=== PATIENT | female | born 1945 | race Caucasian/White ===

== ENCOUNTER → 2016-09-01 | Outpatient (CLI) | payer OTHER | LOC: BHCLAF 13:30 | PROVIDERS: ATTEND Internal Medicine Cardiovascular Disease | DX: R07.9 Chest pain, unspecified (principal); R94.31 Abnormal electrocardiogram [ECG] [EKG]; I10 Essential (primary) hypertension | CPT/HCPCS: 93005-PO ==

== ENCOUNTER → 2016-09-21 | Outpatient (CLI) | payer OTHER | LOC: BHLMT 09:30 | PROVIDERS: ATTEND Internal Medicine Cardiovascular Disease | DX: R07.9 Chest pain, unspecified (principal); R94.31 Abnormal electrocardiogram [ECG] [EKG] | CPT/HCPCS: 78452; 93017; A9500; J2785 ==

== ENCOUNTER 2016-10-12 07:53 | Day surgery (SDC) | payer OTHER ==
[2016-10-12] MEDS ORDERED: NS 1,000 ML IV ONE (07:56)
[2016-10-12] MEDS ORDERED: DIAZEPAM 5 MG TAB PO ONE (07:56)
[2016-10-12] MEDS ORDERED: ASPIRIN EC 325 MG TAB PO ONE ×2 (07:56→08:50)
[2016-10-12] MEDS ORDERED: FAMOTIDINE 20 MG TAB PO ONE (07:56)
[2016-10-12] MEDS ORDERED: diphenhydrAMINE 25 MG CAP PO ONE ×2 (07:56→08:50)
--- NOTE | 2016-10-12 08:27 | CPEKG ---
Heart Rate: 69 RR Interval: 870 P-R Interval: 184 QRSD Interval: 74 QT Interval: 436 QTC Interval: 467 P Caspar: 14 QRS Caspar: 6 T Wave Caspar: 36 EKG Severity - NORMAL ECG - EKG Impression: SINUS RHYTHM Electronically Signed By: Andrea Castillo 13-Oct-2016 18:31:38
[2016-10-12 08:29] LABS: % IMMATURE GRANULYOCYTES 0.3 % (0.0-1.1); ABSOLUTE IMMATURE GRANULOCYTES 0.01 10^3/uL (0.00-0.10); ADD DIFF? NO; ADD MORPH? NO; ADD SCAN? NO; ATYPICAL LYMPHOCYTE FLAG 20 (0-99); FRAGMENT RBC FLAG 0 (0-99); HEMATOCRIT 42.1 % (38.0-47.0); HEMOGLOBIN 14.6 g/dL (12.6-16.3); LEFT SHIFT FLG 0 (0-99); LIPEMIA HEMOLYSIS FLAG 90 (0-99); MEAN CELL HEMOGLOBIN 31.3 pg (27.9-34.1); MEAN CELL HEMOGLOBIN CONCENTR. 34.7 g/dL (32.4-36.7); MEAN CELL VOLUME 90.1 fL (81.5-99.8); MEAN PLATELET VOLUME 9.6 fL (8.7-11.7); PLATELET CLUMPS FLAG 0 (0-99); PLATELET COUNT 322 10^3/uL (150-400); RED BLOOD CELL COUNT 4.67 10^6/uL (4.18-5.33); RED CELL DISTRIBUTION WIDTH 12.5 % (11.5-15.2)
[2016-10-12 08:37] LABS: PROTIME(PATIENT) 13.1 SEC (12.0-15.0)
[2016-10-12 08:48] LABS: ANION GAP 13 mEq/L (8-16); CALCIUM 9.7 mg/dL (8.5-10.4); CARBON DIOXIDE 22 mEq/l (22-31); CHLORIDE 106 mEq/L (97-110); CHOLESTEROL 215 mg/dL (140-220); CHOLESTEROL/HDL RATIO 3.71 RATIO (1.00-4.44); CREATININE 0.8 mg/dL (0.6-1.0); GLOMERULAR FILTRATION RATE > 60; GLUCOSE 202 mg/dL (70-100); HIGH DENSITY LIPOPROTEIN 58 mg/dL (40-85); LDL/HDL RATIO 2.29 RATIO (1.00-3.22); LOW DENSITY LIPOPROTEIN 133 mg/dL (80-100); MAGNESIUM 2.1 mg/dL (1.6-2.3); NON-HIGH DENSITY LIPOPROTEIN 157 mg/dL (90-129); POTASSIUM 4.2 mEq/L (3.5-5.2); SODIUM 141 mEq/L (134-144); TRIGLYCERIDE 123 mg/dL (35-135); VERY LOW DENSITY LIPOPROTEINS 24 mg/dL (8-25)
[2016-10-12] MEDS ORDERED: DIAZEPAM 5 MG TAB ONE (08:50)
[2016-10-12] MEDS ORDERED: FAMOTIDINE 20 MG TAB ONE (08:50)
[2016-10-12] MEDS ORDERED: LIDOCAINE 1% 30 ML SDV ONE (08:52)
[2016-10-12] MEDS ORDERED: HEPARIN 10,000 UNIT/10 ML MDV ONE (08:52)
[2016-10-12] MEDS ORDERED: VERAPAMIL 5 MG/2 ML VIAL ONE (08:52)
[2016-10-12] MEDS ORDERED: fentaNYL 100 MCG/2 ML INJ ONE (08:52)
[2016-10-12] MEDS ORDERED: IOPAMIDOL (ISOVUE 370) 100 ML BTL IV ONE (08:52)
[2016-10-12] MEDS ORDERED: MIDAZOLAM 2 MG/2 ML VIAL ONE (08:52)
--- NOTE | 2016-10-12 10:23 | CPIP ---
[f rep st] INVASIVE CARDIAC PROCEDURE DATE OF PROCEDURE: 10/12/2016 PROCEDURE: 1. Coronary angiography. 2. Left ventriculography. INDICATION: 1. Chest pain syndrome. 2. Abnormal nuclear stress test with apical ischemia consistent with a low risk stress test. ACCESS: The patient was prepped and draped in sterile fashion. 1% lidocaine was used to anesthetiz e the left radial region. A 5-Turkmen introducer sheath was placed selectively into the left radial artery via modified Seldinger technique. CORONARY ANGIOGRAPHY: A 5-Turkmen JL4 was advanced to the left main coronary artery and images obtai parris. The left main coronary artery bifurcated into an LAD and circumflex coronary arteries. The le ft main coronary artery appeared normal. The left anterior descending coronary artery gave rise to 2 prominent diagonal branches. The left anterior descending coronary artery and its complement of d iagonal branches appeared normal. The circumflex coronary artery was a small vessel. The circumfle x coronary artery gave rise to 1 OM branch. The circumflex coronary artery and its OM branch appear ed normal. A 5-Turkmen JR4 was advanced to the right coronary artery and images obtained. The right coronary ar kristin had a single discrete 20% to 30% stenosis in the midvessel. The remainder of the vessel is kaiden e of any significant disease. LEFT VENTRICULOGRAPHY: A 5-Turkmen pigtail catheter was advanced into the left ventricle and images obtained. The left ventricle is normal size and has normal systolic function. Estimated ejection f raction is 60%. COMPLICATIONS: None. CONCLUSIONS: 1. Mild coronary artery disease without flow limitation. 2. Normal left ventricular size and systolic function. PLAN: For medical management. /[id number]/MODL
== END 2016-10-12 18:00 | disposition home or self-care (01) ==
LOC: FCATH 07:53
PROVIDERS: ATTEND Internal Medicine Cardiovascular Disease
PROC: B2151ZZ Fluoroscopy of Left Heart using Low Osmolar Contrast (ICD-10-PCS; principal; 2016-10-12)
PROC: B2111ZZ Fluoroscopy of Multiple Coronary Arteries using Low Osmolar Contrast (ICD-10-PCS; principal; 2016-10-12)
PROC: 4A023N7 Measurement of Cardiac Sampling and Pressure, Left Heart, Percutaneous Approach (ICD-10-PCS; principal; 2016-10-12)
DX: R94.39 Abnormal result of other cardiovascular function study (principal); R07.9 Chest pain, unspecified; I25.10 Atherosclerotic heart disease of native coronary artery without angina pectoris; I10 Essential (primary) hypertension; E78.5 Hyperlipidemia, unspecified
CPT/HCPCS: 93005; 93458; C1769; J1644; J2250; J3010; Q9967

== ENCOUNTER → 2017-12-27 | Outpatient (CLI) | payer OTHER | LOC: BRMIMAGING 14:45 | PROVIDERS: ATTEND Family Medicine | DX: Z12.31 Encounter for screening mammogram for malignant neoplasm of breast (principal) ==